=== PATIENT | male | born 1980 | race Caucasian/White ===

== ENCOUNTER 2022-01-13 10:52 | Emergency (ER) | payer BC, SELFPAY ==
--- NOTE | ~2022-01-13 | XR_ITS ---
EXAMINATION: XR chest 2V DATE: 01/13/2022 11:21 INDICATION: Cough. TECHNIQUE: Frontal and lateral views of the chest were obtained. COMPARISON: Chest 2 views 10/21/2014 FINDINGS: The chest demonstrates clear lungs without pneumonia, pleural effusion, or pneumothorax. Th e heart size is normal. IMPRESSION: 1. No acute cardiopulmonary disease. Reviewed, dictated and finalized at location A.
[2022-01-13 11:03] VITALS: BP 147/82; PULSE 82; RESP 18; TEMP 35.8; O2SAT 98
--- NOTE | 2022-01-13 11:06 | ED.URI ---
HPI - URI/Sore Throat General Chief Complaint: Upper Respiratory Infection Stated Complaint: Shortness of Breath Source: patient and RN notes reviewed Mode of arrival: ambulatory Limitations: no limitations History of Present Illness HPI Narrative: 41 y/o male presented for c/o cough and sob x1 week Endorses cough is nonproductive, body aches and fatigue. Denies sinus congestion or pressure, n/v/d/f/c. smokes 1ppd x20 years. Not boosted for covid. Has not taken anything for symptoms. MD elicited complaint: cough Related Data Allergies Allergy/AdvReac Type Severity Reaction Status Date / Time ibuprofen Allergy Hives Verified 01/13/22 11:09 Review of Systems Review of Systems: CONSTITUTIONAL: Endorses malaise, denies chills, sweats, fever EYES: Denies visual changes, redness, or discharge ENT: denies rhinorrhea, congestion, sinus pain, otalgia, sore throat CARDIOVASCULAR: Denies chest pain, palpitations, edema RESPIRATORY: Reports cough, dyspnea GASTROINTESTINAL: Denies abdominal pain, nausea, vomiting, diarrhea SKIN: Denies rash or itching MUSCULOSKELETAL: Endorses myalgia NEUROLOGIC: Denies headache Exam Narrative: GENERAL: Ill-appearing, nontoxic EYES: conjunctivae erythematous bilat ENT: Mucous membranes moist. TMs pearly ramirez with normal light reflex bilaterally right canal erythematous; no tragal tenderness. NECK: Supple. No lymphadenopathy CHEST: Clear and diminished to auscultation, breath sounds equal. No wheezing, rhonchi, rales, or stridor. No respiratory distress, speaks in full sentences. HEART: Regular rate and rhythm. No murmur heard. SKIN: Warm, dry NEURO: Alert and oriented Course Course Emergency Course: Patient is aware of diagnosis, understands and agrees to treatment plan. Anticipatory guidance given. Patient agrees to follow-up as directed and is aware of reasons to seek care at the emergency department. Portions of this record may have been created with voice recognition software Level of Care: Express Care Visit Vital Signs Vital signs: Vital Signs Temperature 96.4 F L 01/13/22 11:03 Pulse Rate 82 01/13/22 11:03 Respiratory Rate 18 01/13/22 11:03 Blood Pressure 147/82 H 01/13/22 11:03 Pulse Oximetry 98 01/13/22 11:03 Oxygen Delivery Room Air 01/13/22 11:03 Temperature 96.4 F L 01/13/22 11:03 Pulse Rate 82 01/13/22 11:03 Respiratory Rate 18 01/13/22 11:03 Blood Pressure 147/82 H 01/13/22 11:03 Pulse Oximetry 98 01/13/22 11:03 Oxygen Delivery Room Air 01/13/22 11:03 reviewed MDM - URI/Sore Throat MDM Narrative Medical decision making narrative: covid negative. CXR negative. Results reviewed with pt. Reviewed Rx's, advised supportive measures and signs/symptoms to go to the ER. Pt is appropriate for outpt treatment and f/u. Differential Diagnosis Differential diagnosis: Likely upper respiratory infection, sinusitis, viral infection and bronchitis Lab Data Labs: Lab Results 01/13/22 Range/Units 11:07 POC SARS CoV-2 Ag Negative (Negative) Imaging Data Radiologist's impression: Ordering Physician: Yoselyn Webb APRN Date of Service: 01/13/22 Procedure(s): XR chest 2V Accession Number(s): [id number] cc: Yoselyn Webb APRN; INSOLE AND OUTSOLE PREPARER PHYSICIAN~ EXAMINATION: XR chest 2V DATE: 01/13/2022 11:21 INDICATION: Cough. TECHNIQUE: Frontal and lateral views of the chest were obtained. COMPARISON: Chest 2 views 10/21/2014 FINDINGS: The chest demonstrates clear lungs without pneumonia, pleural effusion, or pneumothorax. The heart size is normal. IMPRESSION: 1. No acute cardiopulmonary disease. Discharge Plan Discharge Clinical Impression: Bronchitis Patient Disposition: Home, Self-Care Condition: Stable Instructions: Antibiotic Form, Acute Bronchitis (ED) Additional Instructions: Acute bronchitis can be contagious because it is usually caused by infection with a virus or bacteria. It is usually
== END 2022-01-13 11:47 | disposition home or self-care (01) ==
PROVIDERS: Emergency Provider Nurse Practitioner Family
DX: J40 Bronchitis, not specified as acute or chronic (principal); Z20.822 Contact with and (suspected) exposure to COVID-19; F17.200 Nicotine dependence, unspecified, uncomplicated
CPT/HCPCS: 71046; 87426; 99203; C9803; G0463

== ENCOUNTER 2022-02-02 20:26 | Emergency (ER) | payer BC, SELFPAY ==
--- NOTE | ~2022-02-02 | XR_ITS ---
EXAMINATION: XR chest 2V Exam Date/Time: 02/02/2022 21:15 CDT HISTORY: SOB, COUGH, MIDSTERNAL CHEST PAIN X 1WK. NO CARDIAC HX Comparison: 01/13/2022. RESULT: Lines, tubes, and devices: None. Lungs and pleura: Clear. Cardiomediastinal silhouette: Stable. Other: No acute osseous or upper abdominal finding. IMPRESSION: No acute cardiopulmonary process. Reviewed, dictated and finalized at location K.
[2022-02-02 20:43] VITALS: BP 153/101; PULSE 80; RESP 20; TEMP 36.7; O2SAT 100
--- NOTE | 2022-02-02 20:48 | ECG_ITS ---
Measurements Intervals [place] Rate: 86 P: 49 TX: 116 QRS: -1 QRSD: 110 T: 30 QT: 364 QTc: 436 Interpretive Statements SINUS RHYTHM WITH SINUS ARRHYTHMIA WITH SHORT TX INTERVAL WITHIN NORMAL LIMITS NO PREVIOUS ECG AVAILABLE FOR COMPARISON Electronically Signed On 02-03-2022 14:18:49 CDT by Roman Lucas M.D.
--- NOTE | 2022-02-02 22:38 | ED.GENADULT ---
HPI - General Adult General Chief complaint: Shortness of Breath/Dyspnea Stated complaint: dyspnea Time Seen by Provider: 02/02/22 22:28 History of Present Illness HPI narrative: 41-year-old male presenting the emergency department for evaluation of worsening shortness of breath. Patient states over the course of the last week he has had exertional shortness of breath. Patient denies any associated chest pain. Patient is a smoker. Patient denies any COVID exposure. Patient is not vaccinated against COVID. Patient has not yet had COVID. Related Data Allergies Allergy/AdvReac Type Severity Reaction Status Date / Time naproxen Allergy Intermediate hives Verified 01/21/17 11:35 ibuprofen Allergy Mild Hives / Verified 10/16/16 12:33 [place] Review of Systems Review of Systems: CONSTITUTIONAL: Denies fever, chills, or sweats. EYES: Denies visual changes, redness, or discharge. ENT: Denies rhinorrhea, congestion, sore throat, or otalgia. CARDIOVASCULAR: Denies chest pain, palpitations, or edema. RESPIRATORY: See HPI GASTROINTESTINAL: Denies abdominal pain, nausea, vomiting, or diarrhea. GENITOURINARY: Denies dysuria or hematuria. SKIN: Denies rash or itching. MUSCULOSKELETAL: Denies back pain, joint pain, or myalgia. NEUROLOGIC: Denies headache, numbness, or weakness. Exam Narrative: APPEARANCE: Well appearing, no pain, no distress, well-nourished. HEAD: normocephalic, atraumatic. EYES: PERRLA/EOMI, conjunctivae clear. NOSE: Normal no drainage THROAT: Pharynx clear, no exudate. NECK: Supple. No adenopathy, no masses. RESPIRATORY: Airway patent, respirations nonlabored. Clear to auscultation bilaterally, no rales, rhonchi, wheezing. CARDIOVASCULAR: Regular rate and rhythm without murmurs rubs or gallops. ABDOMINAL: Soft, nontender, nondistended, normal bowel sounds MUSCULOSKELETAL: Moves all extremities. Strength/ROM intact, No edema, No calf tenderness. NEURO: Alert. Cranial nerves II through XII intact. Grossly intact SKIN: Warm, dry. Normal Color Course Course Emergency Course: Patient reports he felt improved with treatment and patient is requesting discharge to home. Vital Signs Vital signs: Vital Signs Temperature 98.1 F 02/02/22 20:43 Pulse Rate 80 02/02/22 20:43 Respiratory Rate 20 02/02/22 20:43 Blood Pressure 153/101 H 02/02/22 20:43 Pulse Oximetry 100 02/02/22 20:43 Oxygen Delivery Room Air 02/02/22 20:43 Temperature 98.1 F 02/02/22 20:43 Pulse Rate 80 02/02/22 23:11 Respiratory Rate 18 02/03/22 01:58 Blood Pressure 153/101 H 02/02/22 20:43 Pulse Oximetry 100 02/02/22 20:43 Oxygen Delivery Room Air 02/02/22 20:43 Medical Decision Making Vital Signs Vital Signs: Vital Signs Temperature 98.1 F 02/02/22 20:43 Pulse Rate 80 02/02/22 20:43 Respiratory Rate 20 02/02/22 20:43 Blood Pressure 153/101 H 02/02/22 20:43 Pulse Oximetry 100 02/02/22 20:43 Oxygen Delivery Room Air 02/02/22 20:43 Temperature 98.1 F 02/02/22 20:43 Pulse Rate 80 02/02/22 23:11 Respiratory Rate 18 02/03/22 01:58 Blood Pressure 153/101 H 02/02/22 20:43 Pulse Oximetry 100 02/02/22 20:43 Oxygen Delivery Room Air 02/02/22 20:43 Lab Data Lab results reviewed: Yes I reviewed the patient's lab results. Result diagrams: 02/02/22 23:02 02/02/22 23:02 Labs: Lab Results 02/02/22 02/02/22 02/02/22 Range/Units 23:02 23:02 23:02 WBC 10.1 H (4.5-10.0) K/mm3 RBC 5.13 (4.6-6.20) M/mm3 Hgb 14.4 (14.0-18.0) g/dL Hct 43.8 (42.0-52.0) % MCV 85.4 (80-100) fl MCH 28.1 (26-34) pg MCHC 32.9 (32-36) g/dl RDW 13.1 (11.5-14.5) % Plt Count 198 (150-375) k/mm3 MPV 10.1 (7.4-10.4) fl Immature Gran % (Auto) 0.3 (0-0.5) % Neut % (Auto) 65.1 (45.5-73.1) % Lymph % (Auto) 26.2 (18.3-44.2) % [place] % (Auto) 6.8 (2.6-8.5) % Eos % (Auto) 1.2 (0-4.4) % Baso % (
[2022-02-02 22:57] VITALS: PULSE 82; RESP 16
[2022-02-02] MEDS: ALBUTEROL SULFATE NEB 2.5 MG/3 ML INH 5 MG INHALATION (22:57)
[2022-02-02 23:08] LABS: Basophils Percent Auto 0.4 % (0.2-1.2); Eosinophils Absolute Auto 0.1 K/mm3 (0-0.3); Eosinophils Percent Auto 1.2 % (0-4.4); Hematocrit 43.8 % (42.0-52.0); Hemoglobin 14.4 g/dL (14.0-18.0); Immature Granulocyte Absolute 0.03 K/mm3 (0.00-0.031); Immature Granulocyte Percent A 0.3 % (0-0.5); Lymphocytes Absolute Auto 2.65 K/mm3 (0.9-3.2); Lymphocytes Percent Auto 26.2 % (18.3-44.2); Mean Corpuscular HGB Conc 32.9 g/dl (32-36); Mean Corpuscular Hemoglobin 28.1 pg (26-34); Mean Corpuscular Volume 85.4 fl (80-100); Mean Platelet Volume 10.1 fl (7.4-10.4); Monocytes Absolute Auto 0.7 K/mm3 (0.1-0.6); Monocytes Percent Auto 6.8 % (2.6-8.5); Neutrophils Absolute Auto 6.6 K/mm3 (1.3-6.7); Neutrophils Percent Auto 65.1 % (45.5-73.1); Platelet Count Result 198 k/mm3 (150-375); Red Blood Count 5.13 M/mm3 (4.6-6.20); Red Cell Distribution Width 13.1 % (11.5-14.5); White Blood Count 10.1 K/mm3 (4.5-10.0)
[2022-02-02 23:11] VITALS: PULSE 80; RESP 15
[2022-02-02 23:19] LABS: Alanine Aminotransferase 32 U/L (6-50); Albumin Level 3.9 g/dL (3.5-5.1); Alkaline Phosphatase 101 U/L (38-126); Anion Gap 7 mmol/L (8-16); Aspartate Amino Transferase 34 U/L (17-59); Bilirubin,Total 0.4 mg/dL (0.2-1.3); Blood Urea Nitrogen 14 mg/dL (9-20); Carbon Dioxide 29 mmol/L (22-30); Chloride 103 mmol/L (98-107); Estimated CRCL calculation 72 ml/min; Estimated Glomerular Filt Rate > 60; Glucose 114 mg/dL (65-110); Potassium 3.5 mmol/L (3.4-5.0); Sodium 139 mmol/L (137-145)
[2022-02-02 23:44] LABS: SARS-CoV-2 RNA PCR Negative
[2022-02-03 01:27] LABS: NT Pro B Type Natriuretic Pept 47 pg/mL (5-100)
[2022-02-03 01:58] VITALS: RESP 18
== END 2022-02-03 02:00 | disposition home or self-care (01) ==
PROVIDERS: Nurse Practitioner Family; Emergency Provider Emergency Medicine
DX: R06.00 Dyspnea, unspecified (principal); Z20.822 Contact with and (suspected) exposure to COVID-19; Z28.310 Unvaccinated for COVID-19; F17.200 Nicotine dependence, unspecified, uncomplicated
CPT/HCPCS: 36415; 71046; 80053; 83880; 85025; 93005; 94640; 99284; C9803; U0003; U0005